=== PATIENT | female | born 1965 | race Caucasian/White ===

== ENCOUNTER 2017-06-22 18:58 | Emergency (ER) | payer SELFPAY ==
[2017-06-22 19:22] VITALS: BP 165/114
[2017-06-22 19:54] LABS: Basophils % (Auto) 0.3 % (0.0-1.8); Hematocrit 41.4 % (30.3-42.9); Hemoglobin 13.6 gm/dl (10.1-14.3); Lymphocytes # (Auto) 0.9 K/mm3 (1.2-5.4); Lymphocytes % (Auto) 9.4 % (13.4-35.0); Mean Corpuscular HGB Conc 33 % (30-34); Mean Corpuscular Hemoglobin 28 pg (28-32); Mean Corpuscular Volume 84 fl (79-97); Monocytes # (Auto) 0.3 K/mm3 (0.0-0.8); Platelet Count 208 K/mm3 (140-440); Red Blood Count 4.92 M/mm3 (3.65-5.03); Red Cell Distribution Width 14.6 % (13.2-15.2)
[2017-06-22 20:26] LABS: Alanine Aminotransferase 27 units/L (7-56); Albumin 4.4 g/dL (3.9-5); BUN/Creatinine Ratio 18; Blood Urea Nitrogen 11 mg/dL (7-17); Calcium 9.3 mg/dL (8.4-10.2); Hemolysis Index 6
[2017-06-22 22:28] LABS: Bilirubin,Urine NEG (Negative); Blood,Urine NEG (Negative); Color,Urine Yellow (Yellow); Mucus,Urine 1+ /HPF; Nitrite,Urine NEG (Negative)
[2017-06-22 22:31] LABS: Protein,Urine >500 mg/dL (Negative)
== END 2017-06-23 00:09 | disposition left against medical advice (07) ==
LOC: ED 18:58
DX: R10.9 Unspecified abdominal pain (principal); Z53.21 Procedure and treatment not carried out due to patient leaving prior to being seen by health care provider
CPT/HCPCS: 36415; 80053; 81001; 85025